=== PATIENT | female | born 1935 | race Caucasian/White ===

== ENCOUNTER 2022-04-09 19:57 | Emergency (ER) | payer MEDICARE, OTHER ==
--- NOTE | 2022-04-09 21:40 | NUR ---
Patient was just called to be triaged at this time due to [address] rescues in the hallway and was unable to call patient to be traiged at the time. Patient was called now but was not present in the waiting room or outside of ER.
--- NOTE | 2022-04-09 21:50 | NUR ---
Patient was called to be triaged but was not present in the waiting room or outside of ER.
--- NOTE | 2022-04-09 22:26 | NUR ---
Patient was called to be triaged but was not present in the waiting room or outside of ER. PATIENT WAS NOT TRIAGED OR SEEN BY [facility].
== END 2022-04-09 22:27 | disposition left against medical advice (07) ==
LOC: ER 19:57
DX: Z53.21 Procedure and treatment not carried out due to patient leaving prior to being seen by health care provider (principal)